=== PATIENT | female | born 1980 | race Two or more races ===

== ENCOUNTER 2017-12-23 12:04 | Emergency (ER) | payer BC ==
[2017-12-23] MEDS: predniSONE 20 MG TAB PO (13:12)
[2017-12-23] MEDS: ALBUTEROL 0.083% (NEB) 2.5 MG/3 ML AMP NEB (13:29)
[2017-12-23] MEDS: IPRATROPIUM (NEB) 0.5 MG/2.5 ML AMP NEB (13:30)
== END 2017-12-23 14:30 | disposition home or self-care (01) ==
LOC: FTE 12:04
DX: J45.901 Unspecified asthma with (acute) exacerbation (principal)
CPT/HCPCS: 71045; 94664; 99284-25